=== PATIENT | female | born 1990 | race Caucasian/White ===

== ENCOUNTER 2017-03-28 | Inpatient (IN) | payer OTHER ==
[2017-03-28 00:38] LABS: BILIRUBIN NEGATIVE (NEGATIVE); BLOOD NEGATIVE Ery/uL (NEGATIVE); CLARITY CLEAR (CLEAR); COLOR YELLOW (YELLOW); GLUCOSE (U) NORMAL (NORMAL); HCT 32.9 % (37.0-47.0); KETONE (U) TRACE mg/dL (NEGATIVE); LEUKOCYTES TRACE Leu/uL (NEGATIVE); MCH 22.9 pg (25.0-31.0); MCHC 30.4 g/dL (32.0-36.0); MCV 75.5 fL (78.0-100.0); MPV 10.1 fL (6.0-9.5); NITRITE NEGATIVE (NEGATIVE); PROTEIN TRACE (LOW) mg/dL (NEGATIVE); RBC 4.36 M/uL (4.20-5.40); RDW 25.4 % (11.5-14.0); WBC 11.5 K/uL (4.0-10.5); pH 6.5 (5.0-9.0)
[2017-03-28 00:44] LABS: URINARY RBC RARE
[2017-03-29 05:44] LABS: HCT 27.5 % (37.0-47.0); HGB 8.2 g/dl (12.5-16.0); MCHC 29.8 g/dL (32.0-36.0); MCV 77.2 fL (78.0-100.0); MPV 9.5 fL (6.0-9.5); RBC 3.56 M/uL (4.20-5.40); RDW 25.3 % (11.5-14.0); WBC 11.2 K/uL (4.0-10.5)
== END 2017-03-30 10:55 | disposition home or self-care (01) | DRG 774 ==
LOC: FOB
PROVIDERS: Obstetrics & Gynecology; ADMIT Obstetrics & Gynecology
PROC: 10E0XZZ Delivery of Products of Conception, External Approach (ICD-10-PCS; principal; 2017-03-28)
PROC: 3E033VJ Introduction of Other Hormone into Peripheral Vein, Percutaneous Approach (ICD-10-PCS; 2017-03-28)
PROC: 10907ZC Drainage of Amniotic Fluid, Therapeutic from Products of Conception, Via Natural or Artificial Opening (ICD-10-PCS; 2017-03-28)
PROC: 4A1HX4Z Monitoring of Products of Conception, Cardiac Electrical Activity, External Approach (ICD-10-PCS; 2017-03-28)
DX: O36.63X0 Maternal care for excessive fetal growth, third trimester, not applicable or unspecified (principal); O72.1 Other immediate postpartum hemorrhage; D62 Acute posthemorrhagic anemia; Z37.0 Single live birth; Z3A.40 40 weeks gestation of pregnancy; O99.344 Other mental disorders complicating childbirth; F41.9 Anxiety disorder, unspecified; Z91.018 Allergy to other foods; Z88.8 Allergy status to other drugs, medicaments and biological substances; O99.03 Anemia complicating the puerperium; D50.9 Iron deficiency anemia, unspecified
CPT/HCPCS: 36415; 81001; 88307; J2300; J2916